=== PATIENT | female | born 1950 | race Caucasian/White ===

== ENCOUNTER → 2022-06-23 | Outpatient (CLI) | payer MEDICARE ==
[~2022-06-23] MED LIST: HYDR-3454 PO
== END ==
LOC: ORTHO 08:08
PROVIDERS: ATTEND Orthopaedic Surgery
DX: M17.0 Bilateral primary osteoarthritis of knee (principal)
CPT/HCPCS: 99203

== ENCOUNTER → 2023-03-04 | Outpatient (CLI) | payer MEDICARE ==
--- NOTE | 2023-03-04 11:43 | Diagnostic Imaging Report ---
EXAMINATION: Left knee radiographs, 4 views. Right knee radiographs, 4 views. COMPARISON: None. HISTORY: 73-year-old female, bilateral knee pain. FINDINGS: The right and left patella are normally positioned. There is severe medial compartment joint space loss bilaterally. There is also severe bilateral patellofemoral compartment joint space loss. There is no right or left knee joint effusion. There is no prominent notch osteophyte formation or radiographically apparent intra-articular body. There is no identified acute fracture. 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 Dictated by: Dictated on workstation # [id number]
== END ==
LOC: ORTHO 10:24
PROVIDERS: ATTEND Orthopaedic Surgery
DX: M17.0 Bilateral primary osteoarthritis of knee (principal); I10 Essential (primary) hypertension
CPT/HCPCS: 99213

== ENCOUNTER → 2023-04-21 | Outpatient (CLI) | payer MEDICARE | LOC: ORTHO 08:59 | PROVIDERS: ATTEND Orthopaedic Surgery | DX: M17.0 Bilateral primary osteoarthritis of knee (principal) | CPT/HCPCS: 99213 ==